=== PATIENT | female | born 1965 | race Two or more races ===

== ENCOUNTER 2016-12-05 20:10 | Emergency (ER) | payer OTHER ==
[2016-12-05 20:31] VITALS: BP 100/77; PULSE 100; RESP 22; TEMP 99; O2SAT 94
[2016-12-05] MEDS ORDERED: ALBUTEROL INH PREPACK MDI TAKEHOME ONE (22:36)
[2016-12-05] MEDS ORDERED: AZITHROMYCIN 250 MG TAB PO ONE (22:36)
--- NOTE | 2016-12-05 22:38 | UCPHY ---
H & P Time Seen by Provider: 12/05/16 21:47 Patient Type: Established HPI/ROS: This patient complains of cough. She has associated feeling of chest congestion. She reports some pain when she coughs but no pleuritic pain. She has associated fevers and frontal headache similar to previous headaches mild intensity that diminishes with antipyretics. No other exacerbating factors. She has mild dyspnea associated with her symptoms. ROS: No high fevers or chills. No other constitutional symptoms. HEENT: No nasal congestion or sore throat. No other complaints. Pulmonary: No respiratory distress. No hemoptysis. GI: No nausea vomiting diarrhea no belly pain. No lower extremity swelling. 7 point ROS is otherwise negative. Past Medical/Surgical History: DVT Migraines Double mastectomy Social History: No drug use. Smoking Status: Never smoked Physical Exam: Physical Exam Vital signs are except for mild tachypnea at 22 and O2 sat slightly low at 94%. General: No acute distress HEENT: Nose: Clear discharge bilaterally. No sinus tenderness to percussion. Ears: External canals and tympanic membranes are clear with no erythema or abnormal findings bilaterally. Oropharynx: No erythema or exudates. No dysphonia. No drooling or stridor. Eyes: Pupils equal and react to light. Extraocular motions are intact. Neck: Supple with no meningismus. No lymphadenopathy Lungs: Bilateral expiratory wheeze with mild rhonchi. No rales are appreciated. Cardiac: Regular rate and rhythm with no murmur gallop or rub. No leg swelling or tenderness. No JVD. Skin: No rash or pallor. Neuro: Alert with no focal deficits noted. Initial differential diagnosis: Bronchitis versus pneumonia Constitutional: Initial Vital Signs Temperature (C) 37.2 C 12/05/16 20:28 Heart Rate 100 12/05/16 20:28 Respiratory Rate 22 H 12/05/16 20:28 Blood Pressure 100/77 12/05/16 20:28 O2 Sat (%) 94 12/05/16 20:28 O2 Delivery Mode Room Air Allergies/Adverse Reactions: Penicillins Allergy (Severe, Verified 12/05/16 20:28) Anaphylaxis hydrocodone bitartrate [From Vicodin] Allergy (Intermediate, Verified 12/05/16 20:28) Vomiting oxycodone [Oxycodone] Allergy (Intermediate, Verified 12/05/16 20:28) Home Medications: Medication Instructions Recorded Azithromycin [Zithromax] 250 mg PO DAILY #4 tab 12/05/16 MDM/Departure - MDM Diagnostics: Chest x-ray: Read by the radiologist and reviewed by myself-no focal infiltrates. Positive peribronchial thickening- Findings consistent with bronchitis Medications Given: Discontinued Medications Albuterol Sulfate (Proventil Inh Prepack) 1 mdi TAKEHOME EDNOW ONE Stop: 12/05/16 22:37 Last Admin: 12/05/16 22:57 Dose: 1 mdi Azithromycin (Zithromax) 500 mg PO EDNOW ONE PRN Reason: Protocol Stop: 12/05/16 22:37 Last Admin: 12/05/16 22:57 Dose: 500 mg ED Course/Re-evaluation: I counseled the patient regarding bronchitis. No evidence of lower respiratory infection. - Depart Disposition: Home, Routine, Self-Care Clinical Impression: Acute bronchitis Qualifiers: Bronchitis organism: unspecified organism Qualified Code(s): J20.9 - Acute bronchitis, unspecified Condition: Good Instructions: Acute Bronchitis (ED) Additional Instructions: Diagnosis: Acute bronchitis Plan: Humidifier Zithromax antibiotic as prescribed Albuterol inhaler with spacer for cough, wheeze or shortness of breath Return for any significant worsening despite the treatment plan. Stand Alone Forms: Work Excuse Prescriptions: Azithromycin [Zithromax] 250 mg PO DAILY #4 tab Referrals: Renee Stock MD [Primary Care Provider] - As per Instructions - PQRS PQRS Measurement: NA
== END 2016-12-05 22:59 | disposition home or self-care (01) ==
LOC: CED 20:10
DX: J20.9 Acute bronchitis, unspecified (principal)
CPT/HCPCS: 71020-PO; 99214-PO; G0463-PO

== ENCOUNTER 2017-04-27 16:30 | Emergency (ER) | payer OTHER ==
--- NOTE | 2017-04-27 16:39 | EDPHY ---
H & P Time Seen by Provider: 04/27/17 16:35 HPI/ROS: CHIEF COMPLAINT: Right middle digit injury HISTORY OF PRESENT ILLNESS: 51-year-old [id number] female works at [employer] was opening and door and her right 3rd finger got stuck on the door handle. She is complaining of pain to the proximal middle phalanx of the right middle/3rd digit. No shortening or malrotation. Reproducible pain with palpation range of motion. Occurred shortly prior to arrival. PRIMARY CARE PROVIDER: worker's compensation REVIEW OF SYSTEMS: A ten point review of systems was performed and is negative with the exception of the items mentioned in the HPI PHYSICAL EXAM (Prior to examination, patient consented to physical exam, hands were washed and my usual and customary physical exam procedures followed) 1) GENERAL: Well-developed, well-nourished, alert and oriented. Appears to be in no acute distress. 2) HEAD: Normocephalic 3) HEENT: sclera anicteric 4) LUNGS: Breathing comfortably. 5) SKIN: intact 6) MUSCULOSKELETAL: no shortening no malrotation. Normal cascading of digit. Tender to palpation proximal and middle phalanx of the right 3rd digit. Otherwise hand and fingers are nontender. Flexor extensor function at the MCP PIP D IP present. No signs of infection. Negative kanavel. 7) NEUROLOGIC: Full sensation distally. Smoking Status: Never smoked Constitutional: Initial Vital Signs Temperature (C) 36.9 C 04/27/17 16:37 Heart Rate 78 04/27/17 16:37 Respiratory Rate 16 04/27/17 16:37 Blood Pressure 115/67 04/27/17 16:37 O2 Sat (%) 98 04/27/17 16:37 O2 Delivery Mode Room Air Allergies/Adverse Reactions: Penicillins Allergy (Severe, Verified 12/05/16 20:28) Anaphylaxis hydrocodone bitartrate [From Vicodin] Allergy (Intermediate, Verified 12/05/16 20:28) Vomiting oxycodone [Oxycodone] Allergy (Intermediate, Verified 12/05/16 20:28) Home Medications: Medication Instructions Recorded Azithromycin [Zithromax] 250 mg PO DAILY #4 tab 12/05/16 MDM/Departure - MDM Imaging Results: Imaging Impressions Finger X-Ray 04/27/17 16:35 Impression: Negative for acute fracture. Minimal periarticular erosive changes, PIP joint, right third finger. Images reviewed myself Procedures: Procedure: Splint Aluminum finger splint and tho tape splint were applied by ER construction services technician. After application of the splint I returned and re-examined the patient. The splint was adequately immobilizing the joint and distal to the splint the patient's circulation and sensation were intact. Patient shows no signs of compartment syndrome. Was given orthopedic precautions. - Depart Disposition: Home, Routine, Self-Care Clinical Impression: Sprain of finger of right hand Qualifiers: Encounter type: initial encounter Finger: middle finger Sprain of finger site: interphalangeal joint Qualified Code(s): S63.632A - Sprain of interphalangeal joint of right middle finger, initial encounter Condition: Good Instructions: Finger Sprain (ED) Additional Instructions: Return to the ER immediately if you experience discoloration, have worsening pain, numbness, tingling, or any other symptoms that concern you. If you received x-rays in the emergency department today, be advised, that ligamentous , tendon, muscular, and other non-bony injury cannot be fully ruled out. Try to keep your affected extremity elevated above the level of your chest, and keep cold packs on the affected area, for the next 48 hours. Stand Alone Forms: Work Comp Follow Up Referrals: Ruthie Luke MD [Medical Doctor] - 2-3 days without fail
[2017-04-27 16:40] VITALS: BP 115/67; PULSE 78; RESP 16; TEMP 98.4; O2SAT 98
== END 2017-04-27 17:25 | disposition home or self-care (01) ==
DX: S63.632A Sprain of interphalangeal joint of right middle finger, initial encounter (principal); W23.0XXA Caught, crushed, jammed, or pinched between moving objects, initial encounter; Y92.69 Other specified industrial and construction area as the place of occurrence of the external cause; Y99.0 Civilian activity done for income or pay; Y93.89 Activity, other specified
CPT/HCPCS: L3925

== ENCOUNTER → 2019-01-13 | Outpatient (CLI) | payer OTHER | LOC: CIMAGING 10:42 ==